=== PATIENT | female | born 1970 | race Caucasian/White ===

== ENCOUNTER → 2021-08-05 | Outpatient (CLI) | payer BC | LOC: MAMO 11:30 | DX: Z12.31 Encounter for screening mammogram for malignant neoplasm of breast (principal) | CPT/HCPCS: 77063; 77067 ==

== ENCOUNTER → 2021-08-26 | Outpatient (CLI) | payer BC | LOC: LAB 14:28 | PROVIDERS: Family Medicine | DX: R94.4 Abnormal results of kidney function studies (principal) | CPT/HCPCS: 36415; 80048 ==

== ENCOUNTER → 2021-09-03 | Outpatient (CLI) | payer BC | LOC: MAMO 10:30 → US 13:30 | DX: R92.8 Other abnormal and inconclusive findings on diagnostic imaging of breast (principal) | CPT/HCPCS: 76641; 77066 ==